=== PATIENT | female | born 1985 | race Caucasian/White ===

== ENCOUNTER → 2017-03-12 | Outpatient (CLI) | payer OTHER ==
[2017-03-12 17:45] LABS: CALCIUM OXALATE CRYSTALS SMALL
== END ==
LOC: M SMT 11:30
DX: N20.0 Calculus of kidney (principal)
CPT/HCPCS: 81001

== ENCOUNTER 2017-04-02 06:19 | Day surgery (SDC) | payer OTHER ==
[2017-04-02] MEDS ORDERED: LR 1,000 ML IV ×2 (07:15→10:00)
[2017-04-02] MEDS ORDERED: LIDOCAINE 2% INJ 100 MG/5 ML SDV (FOR ANES.) As Ordered (07:16)
[2017-04-02] MEDS ORDERED: PROPOFOL 200 MG/20 ML VIAL As Ordered ×2 (07:16→09:07)
[2017-04-02] MEDS ORDERED: fentaNYL 100 MCG/2 ML INJECTION (J3010) As Ordered (07:20)
[2017-04-02] MEDS ORDERED: MIDAZOLAM INJ 2 MG/2 ML VIAL (J2250) As Ordered (07:21)
[2017-04-02 07:51] LABS: CONTROL LINE UCG INT CTR LINE PRESENT; URINE PREG TEST NEGATIVE (NEGATIVE)
[2017-04-02] MEDS ORDERED: CEFAZOLIN SOD 3 GM in APPROPRIATE DILUENT 1 EA IV (08:00)
[2017-04-02] MEDS: CEFAZOLIN SOD 1 GM in APPROPRIATE DILUENT 1 EA IV (08:26)
[2017-04-02] MEDS ORDERED: TAMSULOSIN 0.4 MG CAP PO (09:00)
[2017-04-02] MEDS ORDERED: ONDANSETRON 4MG/2ML VIAL (J2405) IV (10:00)
[2017-04-02] MEDS ORDERED: fentaNYL 100 MCG/2 ML INJECTION (J3010) IV (10:00)
[2017-04-02] MEDS ORDERED: ACETAMINOPHEN 650MG ER TAB (TYLENOL ARTHRITIS) PO (10:00)
== END 2017-04-02 11:10 | disposition home or self-care (01) ==
LOC: M SDC 06:19
DX: N20.0 Calculus of kidney (principal); G43.909 Migraine, unspecified, not intractable, without status migrainosus; R06.02 Shortness of breath; F31.9 Bipolar disorder, unspecified; E66.9 Obesity, unspecified; Z68.43 Body mass index [BMI] 50.0-59.9, adult; Z88.1 Allergy status to other antibiotic agents; Z79.899 Other long term (current) drug therapy
CPT/HCPCS: 50590

== ENCOUNTER 2019-01-15 18:48 | Emergency (ER) | payer OTHER ==
[~2019-01-15] VITALS: Ht 157.5 cm; Wt 147.7 kg
[~2019-01-15 18:48] MED LIST: AMBI10TA PO; CELE20TA PO; FLOM0.4C39 PO; LATU80TA PO; TOPA100T12 PO; TYLE650T35 PO; VYVA60CA PO
[2019-01-15] MEDS ORDERED: VITA500045 (18:54)
[2019-01-15] MEDS ORDERED: TOPI200T7 (18:54)
[2019-01-15] MEDS ORDERED: LITH300T2 (18:54)
[2019-01-15] MEDS ORDERED: SUMA25TA3 (18:54)
[2019-01-15] MEDS ORDERED: ZOLP12.515 (18:54)
[2019-01-15] MEDS ORDERED: LITH600C (18:54)
[2019-01-15] MEDS ORDERED: PROP20TA72 (18:54)
[2019-01-15] MEDS ORDERED: METAL LOCK LOOP XX ONE (19:35)
[2019-01-15 19:51] LABS: BILIRUBIN, URINE MANUAL OBSCURED (NEGATIVE); GLUCOSE, URINE (UA) MANUAL OBSCURED mg/dL (NEGATIVE); KETONE, URINE MANUAL OBSCURED mg/dL (NEGATIVE); UROBILINOGEN, URINE MANUAL OBSCURED mg/dl (NORMAL)
[2019-01-15 20:00] LABS: BACTERIA, URINE LARGE AMOUNT; MUCUS, URINE MOD AMOUNT (NEGATIVE); RBC, URINE 30-40 /hpf (0-3); SQUAMOUS EPITHELIAL CELL URINE LARGE AMOUNT /hpf (SMALL AMT)
[2019-01-15 20:01] LABS: HYALINE CAST, URINE NONE SEEN /lpf (0-1)
[2019-01-15 20:26] LABS: BASO % 0.3 % (0.0-1.0); EOS # 0.2 10^3/uL (0.0-0.5); EOS % 1.5 % (0.0-3.0); HEMOGLOBIN 11.1 g/dl (12.0-15.5); LYMPH # 2.9 10^3/uL (1.5-5.0); LYMPH % 19.5 % (24.0-44.0); MEAN CORPUSCULAR HEMOGLOBIN 27.2 pg (27.0-33.0); MEAN CORPUSCULAR HGB CONC 29.2 g/dl (32.0-36.5); MEAN CORPUSCULAR VOLUME 93.1 fl (80.0-96.0); MONO # 0.8 10^3/uL (0.0-0.8); MONO % 5.1 % (0.0-5.0); NEUTROPHILS # 10.9 10^3/uL (1.5-8.5); NEUTROPHILS % 72.3 % (36.0-66.0); PLATELET COUNT, AUTOMATED 343 10^3/uL (150-450); RED BLOOD COUNT 4.08 10^6/uL (4.00-5.40); WHITE BLOOD COUNT 15.1 10^3/uL (4.0-10.0)
[2019-01-15 21:08] LABS: ALBUMIN 3.1 GM/DL (3.2-5.2); ALT/SGPT 32 U/L (12-78); BILIRUBIN,DIRECT < 0.1 MG/DL (0.0-0.2); BILIRUBIN,TOTAL 0.2 MG/DL (0.2-1.0); BLOOD UREA NITROGEN 11 MG/DL (7-18); CALCIUM LEVEL 8.9 MG/DL (8.5-10.1); CARBON DIOXIDE LEVEL 24 MEQ/L (21-32); CHLORIDE LEVEL 113 MEQ/L (98-107); CREATININE FOR GFR 1.17 MG/DL (0.55-1.30); GLOMERULAR FILTRATION RATE 57.4 (>60); GLUCOSE, FASTING 177 MG/DL (70-100); LIPASE 109 U/L (73-393); POTASSIUM SERUM 3.8 MEQ/L (3.5-5.1); SODIUM LEVEL 144 MEQ/L (136-145); TOTAL PROTEIN 7.3 GM/DL (6.4-8.2)
[2019-01-15] MEDS ORDERED: KETOROLAC 30 MG/ML VIAL (J1885) IV ONE (21:30)
[2019-01-15] MEDS ORDERED: ONDANSETRON 4MG/2ML VIAL (J2405) IV ONE (21:30)
[2019-01-15] MEDS ORDERED: NS 1,000 ML IV ONE (21:30)
[2019-01-15] MEDS ORDERED: ISOVUE-370 76% 100ML VIAL (Q9967) As Ordered ONE (21:59)
[2019-01-15] MEDS ORDERED: METOCLOPRAMIDE INJ 10MG/2ML VIAL (J2765) IV ONE (23:00)
--- NOTE | 2019-01-15 23:04 | REPVR ---
PROCEDURE INFORMATION: Exam: CT Abdomen And Pelvis With Contrast Exam date and time: 01/15/2019 9:59 PM Clinical history: 33 years old, female; Abdominal pain; Flank; Right; Additional info: Right flank pain TECHNIQUE: Imaging protocol: Computed tomography of the abdomen and pelvis with intravenous contrast. Radiation optimization: All CT scans at this facility use at least one of these dose optimization techniques: automated exposure control; mA and/or kV adjustment per patient size (includes targeted exams where dose is matched to clinical indication); or iterative reconstruction. Contrast material: ISOVUE 370; Contrast volume: 100 ml; Contrast route: IV; COMPARISON: CT ABD PELVIS W/O CONTRAST 12/21/2015 3:37 PM FINDINGS: Lungs: Clear lung bases Heart: The heart is normal in size. Liver: There is moderate fatty infiltration of the liver. There is moderate hepatomegaly. Gallbladder and bile ducts: Normal. No calcified stones. No ductal dilation. Pancreas: Normal pancreas. Spleen: Normal spleen. Adrenals: Normal adrenal glands. Kidneys and ureters: There is enhancement of both kidneys. There are numerous small calcified stones right and left kidney/nonobstructive. The stones right and left kidney are new since 2014. There is no evidence of stone at the right lower left ureter. Stomach and bowel: The cecum is in the right lower quadrant and there is no evidence of inflammation in the region of the cecum. Normal appearing small bowel. Appendix: The appendix abuts the lower margin of the liver and appears within the range of normal. Intraperitoneal space: No evidence of pneumoperitoneum. Vasculature: There is opacification of the aorta which appears normal in size. Lymph nodes: Unremarkable. No enlarged lymph nodes. Bladder: Normal appearing urinary bladder. Reproductive: Normal size uterus. 2.3 CM and 2.5 CM cyst of the left ovary and suggest followup study to ensure that the cystic structures resolve. Bones/joints: There is a large posterior osteophyte L5-S1 causing prominent impression on the thecal sac much greater on the right. Soft tissues: Unremarkable. IMPRESSION: 1. Moderate hepatomegaly and moderate fatty infiltration to the liver. 2. 3 mm calcified stone lower pole right kidney/nonobstructive. Multiple punctate stones left kidney/nonobstructive. Some irregularity and scarring of the right renal cortex. 3. 2 dominant cysts left ovary recommend followup study to ensure that the cyst resolved. Follow up study could be an ultrasound done after 2-3 cycles. 4. 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 Electronically signed by: Alexandre Mohr On 01/15/2019 23:04:31 PM
[2019-01-16] MEDS ORDERED: BACTRIM 160MG/800MG DS TAB PO ONE
[2019-01-16] MEDS ORDERED: BACT800T5 PO ×2 (00:12→00:18)
[2019-01-16] MEDS ORDERED: NORC1TAB7 PO ×2 (00:12→00:18)
[2019-01-16 00:13] LABS: HEMOGLOBIN A1c 6.7 %
[2019-01-16 00:42] VITALS: BP 123/60
== END 2019-01-16 00:51 | disposition home or self-care (01) ==
LOC: M ED 18:48
DX: N39.0 Urinary tract infection, site not specified (principal); N20.0 Calculus of kidney; N83.202 Unspecified ovarian cyst, left side; M47.897 Other spondylosis, lumbosacral region; Z87.442 Personal history of urinary calculi; R56.9 Unspecified convulsions; F41.9 Anxiety disorder, unspecified; F32.9 Major depressive disorder, single episode, unspecified; F20.9 Schizophrenia, unspecified; Z88.1 Allergy status to other antibiotic agents; Z79.899 Other long term (current) drug therapy
CPT/HCPCS: 74177; 80048; 80076; 81000; 83036; 83690; 84702; 85025; 87086; 96361; 96374; 96375; 99284; J1885; J2405; J2765; Q9967

== ENCOUNTER → 2019-07-25 | Outpatient (REF) ==
[~2019-07-25] MED LIST changes: +BACT800T5 PO; +LITH300T2; +LITH600C; +NORC1TAB7 PO; +PROP20TA72; +SUMA25TA3; +TOPI200T7; +VITA500045; +ZOLP12.515
== END ==
LOC: M LAB 09:37
DX: Z02.89 Encounter for other administrative examinations (principal)